=== PATIENT | male | born 1975 | race Two or more races ===

== ENCOUNTER 2025-05-16 19:57 | Emergency (ER) | payer OTHER ==
[~2025-05-16] VITALS: Ht 162.6 cm; Wt 115.7 kg
[2025-05-16] MEDS ORDERED: MORPHINE SULFATE 4 MG/ML CARTRIDGE IV ONE (21:00)
[2025-05-16] MEDS ORDERED: FAMOtidine 10 MG/ML (4ML VIAL) IV ONE (21:00)
[2025-05-16] MEDS ORDERED: CEFTRIAXONE SODIUM 1,000 MG VIAL IV ONE (21:00)
[2025-05-16] MEDS ORDERED: 0.9 % SODIUM CHLORIDE 1,000 ML IV ONE (21:00)
[2025-05-16] MEDS ORDERED: ONDANSETRON HCL 2 MG/ML VIAL IV ONE (21:00)
[2025-05-16] MEDS ORDERED: ONDANSETRON HCL 2 MG/ML VIAL ONE (21:38)
[2025-05-16] MEDS ORDERED: FAMOTIDINE/PF 20 MG/2 ML VIAL ONE (21:39)
[2025-05-16] MEDS ORDERED: CEFTRIAXONE SODIUM 1,000 MG VIAL ONE (21:39)
[2025-05-16 23:26] LABS: BASO % 0.3 % (0.1-1.2); EOS # 0.00 (0.04-0.54); EOS % 0.0 % (0.7-7.0); LYMPH # 0.88 (1.18-3.74); LYMPH % 5.5 % (19.3-53.1); MEAN PLATELET VOLUME 10.80 fl (9.4-12.4); MONO # 0.50 (0.24-0.82); MONO % 3.1 % (4.7-12.5); NEUT # 14.47 (1.56-6.13); NEUT % 90.5 % (34.0-71.1); RED CELL DISTRIBUTION WIDTH 17.6 % (11.6-14.4)
[2025-05-16 23:27] LABS: INR 1.06
[2025-05-17 00:54] LABS: ALT/SGPT 39.0 U/L (12-78); AST/SGOT 24.0 U/L (15-37); BILIRUBIN TOTAL 0.39 mg/dL (0.3-1.2); BUN CREA RATIO 12.0 (7.0-25.0); CREATININE SERUM 1.0 mg/dL (0.70-1.30); GFR 79.42; GLOBULINA 3.5 G/DL (2.4-3.5); GLUCOSE FASTING 127.0 mg/dL (65-100); OSMOLALITY SERUM 288.0 MOSM/KG (275-295)
[2025-05-17 01:19] LABS: URINE APPEARANCE Cloudy; URINE BILIRRUBIN Negative (NEGATIVE); URINE BLOOD Moderate; URINE COLOR Yellow; URINE GLUCOSE Negative (NEGATIVE); URINE LEUKOCYTE Trace; URINE NITRATE Negative; URINE PROTEIN 30 (NEGATIVE); URINE UROBILINOGEN 0.2 E.U./dl
[2025-05-17 01:23] LABS: URINE BACTERIA 122.4 uL (0.0-1933); URINE EPITHELIAL CELLS 12.1 uL (0.0-38.8); URINE RBC 238.0 uL (0.0-20.8); URINE WBC 28.2 uL (0.0-23.2)
[2025-05-17 01:35] LABS: URINE CAST 0.29 uL (0.0-1.40); URINE KETONE 40 (NEGATIVE)
[2025-05-17] MEDS ORDERED: PEPCID AC20 MG PO (07:49)
[2025-05-17] MEDS ORDERED: KETO10TA2 PO (07:49)
[2025-05-17] MEDS ORDERED: PYRIDIUM DS200 MG PO (07:49)
[2025-05-17] MEDS ORDERED: TAMS0.4C PO (07:49)
[2025-05-17 08:00] VITALS: BP 133/87; O2SAT 100
== END 2025-05-17 08:02 | disposition home or self-care (01) ==
LOC: ER 19:58
PROVIDERS: General Practice
DX: R10.A1 Flank pain, right side (principal); R30.0 Dysuria; R11.10 Vomiting, unspecified